=== PATIENT | female | born 1955 | race Two or more races ===

== ENCOUNTER 2017-04-05 10:00 | Inpatient (IN) | payer MEDICAID ==
[~2017-04-05] VITALS: Ht 152.4 cm; Wt 70.0 kg
[~2017-04-05 10:00] MED LIST: ACET325C PO; ATOR20TA66 PO; FERR-116 PO; LEVO75TA7 PO; LITH300T3 PO; MULT-1096 PO; POTA99TA25 PO; VITA-293 PO
[2017-04-05 10:34] LABS: BASOPHILS % (AUTO) 0.3 % (0-1); EOSINOPHILS # (AUTO) 0.2 X10'3 (0-0.9); EOSINOPHILS % (AUTO) 2.5 % (0-6); HEMATOCRIT 38.1 % (35.0-45.0); HEMOGLOBIN 13.3 g/dl (12.0-16.0); LYMPHOCYTES # (AUTO) 2.7 X10'3 (1.1-4.8); MEAN CORPUSCULAR HEMOGLOBIN 31.6 PG (27.0-31.0); MEAN CORPUSCULAR HGB CONC 34.8 % (33.0-36.5); MEAN CORPUSCULAR VOLUME 90.7 FL (78-98); MEAN PLATELET VOLUME 6.2 FL (7.4-10.4); MONOCYTES # (AUTO) 0.5 X10'3 (0-0.9); MONOCYTES % (AUTO) 6.3 % (2-12); NEUTROPHILS # (AUTO) 5.1 X10'3 (1.8-7.7); NEUTROPHILS % (AUTO) 58.9 % (42-75); PLATELET COUNT 460 X10'3 (140-440); WHITE BLOOD COUNT 8.6 X10'3 (4.5-11.0)
[2017-04-05 10:44] LABS: PARTIAL THROMBOPLASTIN TIME 24 SECONDS (22-32)
[2017-04-05 10:51] LABS: ALANINE AMINOTRANSFERASE 47 U/L (12-78); ALBUMIN 4.3 G/DL (3.4-5.0); ALBUMIN/GLOBULIN RATIO 1.3 (1.1-1.5); ALKALINE PHOSPHATASE 70 IU/L (46-116); ANION GAP 10 (8-16); ASPARTATE AMINO TRANSFERASE 21 U/L (10-37); BILIRUBIN,TOTAL 0.3 MG/DL (0.1-1.0); BLOOD UREA NITROGEN 8 MG/DL (7-18); BUN/CREATININE RATIO 8.9 (6.6-38.0); CHLORIDE 105 MMOL/L (99-107); GLUCOSE 108 MG/DL (70-104); POTASSIUM 3.1 MMOL/L (3.5-5.1); SODIUM 139 MMOL/L (135-145); TOTAL CARBON DIOXIDE 24.3 MMOL/L (24-32); TOTAL PROTEIN 7.7 G/DL (6.4-8.2); eGFR 64 ML/MIN
[2017-04-05] MEDS ORDERED: potassium Cl 20 mEq SR tablet PO ONE (11:10)
[2017-04-05] MEDS ORDERED: magnesium 2GM in 50ml NS 50 ML IV PRN (12:05)
[2017-04-05] MEDS ORDERED: metoprolol tartrate 1mg/ml inj IV PRN (12:05)
[2017-04-05] MEDS ORDERED: magnesium hydroxide 30ml (MOM) UD suspension PO PRN (12:05)
[2017-04-05] MEDS ORDERED: LORazepam 2 mg/ml vial IV PRN (12:05)
[2017-04-05] MEDS ORDERED: morphine 2 MG/ML inj. syringe IV PRN ×2 (12:05)
[2017-04-05] MEDS ORDERED: potassium Cl 40MEQ/NS 500ml 500 ML IV PRN ×2 (12:05)
[2017-04-05] MEDS ORDERED: potassium Cl 20 mEq SR tablet PO PRN ×2 (12:05)
[2017-04-05] MEDS ORDERED: aminophylline 250mg/10ml inj. IV PRN (12:05)
[2017-04-05] MEDS ORDERED: mag hydrox/Alum hydrox/simeth 30ml oral suspension PO PRN (12:05)
[2017-04-05] MEDS ORDERED: ondansetron/PF 4mg/2ml inj IV PRN (12:05)
[2017-04-05] MEDS ORDERED: acetaminophen 325mg tablet PO PRN (12:05)
[2017-04-05] MEDS ORDERED: regadenoson 0.4mg/5ml syringe IV ONE (12:05)
[2017-04-05] MEDS ORDERED: nitroGLYCERIN 0.4mg SUBLingual tab SL PRN ×2 (12:05)
[2017-04-05] MEDS ORDERED: magnesium 4gm in 100ml NS 100 ML IV PRN (12:05)
[2017-04-05] MEDS ORDERED: magnesium Cl slow-release 64mg tablet PO PRN (12:05)
[2017-04-05] MEDS ORDERED: DIPH-522 PO (12:16)
[2017-04-05] MEDS: normal saline 1000ml 1,000 ML IV SCH (12:33)
[2017-04-05 14:44] VITALS: BP 142/75
[2017-04-05 19:00] VITALS: BP 140/85
[2017-04-05] MEDS: acetaminophen 325mg tablet PO PRN (19:10)
[2017-04-05] MEDS: lithium carbonate 150mg capsule PO SCH (23:02)
[2017-04-06] VITALS (10 sets, daily range): BP systolic 124–145; BP diastolic 69–79
[2017-04-06] MEDS: normal saline 1000ml 1,000 ML IV SCH (01:51)
[2017-04-06 05:41] LABS: HEMATOCRIT 32.9 % (35.0-45.0); HEMOGLOBIN 11.3 g/dl (12.0-16.0); MEAN CORPUSCULAR HEMOGLOBIN 31.2 PG (27.0-31.0); MEAN CORPUSCULAR HGB CONC 34.3 % (33.0-36.5); MEAN CORPUSCULAR VOLUME 91.1 FL (78-98); MEAN PLATELET VOLUME 6.3 FL (7.4-10.4); PLATELET COUNT 360 X10'3 (140-440); RED BLOOD COUNT 3.61 X10'6 (4.20-5.60); WHITE BLOOD COUNT 5.9 X10'3 (4.5-11.0)
[2017-04-06 06:19] LABS: ALBUMIN 3.5 G/DL (3.4-5.0); ANION GAP 6 (8-16); BLOOD UREA NITROGEN 8 MG/DL (7-18); BUN/CREATININE RATIO 11.4 (6.6-38.0); CALCIUM 9.3 MG/DL (8.5-10.1); CHLORIDE 112 MMOL/L (99-107); CHOL/HDL RATIO 7.7 (0.00-4.99); CHOLESTEROL 231 MG/DL (0-200); GLUCOSE 99 MG/DL (70-104); HDL CHOLESTEROL 30 MG/DL (35-60); LDL CHOLESTEROL 140 MG/DL (50-100); SODIUM 144 MMOL/L (135-145); TOTAL CARBON DIOXIDE 26.3 MMOL/L (24-32); TRIGLYCERIDES 285 MG/DL (20-135); eGFR 86 ML/MIN
[2017-04-06] MEDS ORDERED: levoTHYROXINE 75mcg tablet PO SCH (08:00)
[2017-04-06] MEDS ORDERED: K and/or MAG REPLACEMENT MC SCH (08:00)
[2017-04-06] MEDS ORDERED: enoxaparin 40mg/0.4ml syringe SQ SCH (08:00)
[2017-04-06] MEDS ORDERED: aminophylline inj. 0 ML IV ONE (09:51)
[2017-04-06] MEDS ORDERED: regadenoson 0.4mg/5ml syringe IV ONE (09:52)
[2017-04-06] MEDS: lithium carbonate 150mg capsule PO SCH (12:00)
[2017-04-06] MEDS: acetaminophen 325mg tablet PO PRN (12:01)
[2017-04-06] MEDS ORDERED: LEVO500T2 PO (13:47)
[2017-04-06] MEDS ORDERED: ATOR40TA PO (13:57)
[2017-04-07] MEDS ORDERED: atorvastatin 20mg tablet PO SCH (08:00)
== END 2017-04-06 16:00 | disposition home or self-care (01) | DRG 243 ==
LOC: ER 10:01 → ED HOLD 12:01 → MED 3N 14:41
PROVIDERS: ADMIT Family Medicine; ATTEND Family Medicine
PROC: C2261ZZ Tomographic (Tomo) Nuclear Medicine Imaging of Right and Left Heart using Technetium 99m (Tc-99m) (ICD-10-PCS; principal; 2017-04-06)
DX: K21.9 Gastro-esophageal reflux disease without esophagitis (principal); I10 Essential (primary) hypertension; E03.9 Hypothyroidism, unspecified; E78.5 Hyperlipidemia, unspecified; E87.6 Hypokalemia; F31.9 Bipolar disorder, unspecified; G40.909 Epilepsy, unspecified, not intractable, without status epilepticus; J40 Bronchitis, not specified as acute or chronic; G89.29 Other chronic pain; Z60.2 Problems related to living alone; Z87.891 Personal history of nicotine dependence; Z88.6 Allergy status to analgesic agent; Z88.5 Allergy status to narcotic agent; Z88.2 Allergy status to sulfonamides; Z87.11 Personal history of peptic ulcer disease; Z85.3 Personal history of malignant neoplasm of breast; Z90.49 Acquired absence of other specified parts of digestive tract
CPT/HCPCS: 36415; 71045; 78452; 80048; 80053; 80061; 83036; 83735; 84484; 85025; 85027; 85610; 85730; 87070; 93005; 93017; 93306; 99285; A9500; J0280; J1650; J2060; J7030

== ENCOUNTER 2019-07-24 12:21 | Emergency (ER) | payer MEDICAID ==
[~2019-07-24] VITALS: Ht 170.2 cm; Wt 63.0 kg
[~2019-07-24 12:21] MED LIST changes: -ACET325C PO; +ACET325C3 PO; -ATOR20TA66 PO; -FERR-116 PO; -MULT-1096 PO; -POTA99TA25 PO; -VITA-293 PO
--- NOTE | 2019-07-24 12:36 | NUR ---
BIB EMS WITH C/O HOMELESS AND NEEDING SNF. DENIES SI OR HI. HX PSYCH PROBLEMS AND PREVIOUSLY WAS LIVING IN A GROUP HOME PSYCH FACILITY. PATIENT IS LOOKING FOR SNF, HOUSING, RESOURCES AT THIS TIME.
[2019-07-24 17:07] VITALS: BP 137/81
== END 2019-07-24 17:09 | disposition home or self-care (01) ==
LOC: ER 12:22
DX: Z00.8 Encounter for other general examination (principal); E78.00 Pure hypercholesterolemia, unspecified; I10 Essential (primary) hypertension; K21.9 Gastro-esophageal reflux disease without esophagitis; G89.29 Other chronic pain; Z87.891 Personal history of nicotine dependence; Z59.0 Homelessness; Z56.0 Unemployment, unspecified; Z87.11 Personal history of peptic ulcer disease; Z90.49 Acquired absence of other specified parts of digestive tract; Z85.3 Personal history of malignant neoplasm of breast; Z88.2 Allergy status to sulfonamides; Z88.1 Allergy status to other antibiotic agents; Z88.8 Allergy status to other drugs, medicaments and biological substances; Z88.5 Allergy status to narcotic agent; Z79.899 Other long term (current) drug therapy
CPT/HCPCS: 99283

== ENCOUNTER 2019-08-02 12:28 | Inpatient (IN) | payer MEDICAID ==
[~2019-08-02] VITALS: Ht 165.1 cm; Wt 62.0 kg
[2019-08-02 13:20] LABS: BASOPHILS % (AUTO) 0.6 % (0-1); EOSINOPHILS # (AUTO) 0.2 X10'3 (0-0.9); EOSINOPHILS % (AUTO) 2.8 % (0-6); HEMATOCRIT 34.4 % (35.0-45.0); HEMOGLOBIN 11.5 g/dl (12.0-16.0); LYMPHOCYTES # (AUTO) 1.1 X10'3 (1.1-4.8); LYMPHOCYTES % (AUTO) 17.9 % (21-51); MEAN CORPUSCULAR HEMOGLOBIN 30.4 PG (27.0-31.0); MEAN CORPUSCULAR HGB CONC 33.5 g/dL (33.0-36.5); MEAN CORPUSCULAR VOLUME 90.6 FL (78-98); MEAN PLATELET VOLUME 6.7 FL (7.4-10.4); MONOCYTES # (AUTO) 0.3 X10'3 (0-0.9); MONOCYTES % (AUTO) 5.5 % (2-12); NEUTROPHILS # (AUTO) 4.4 X10'3 (1.8-7.7); NEUTROPHILS % (AUTO) 73.2 % (42-75); PLATELET COUNT 350 X10'3 (140-440); RED CELL DISTRIBUTION WIDTH 13.6 % (11.5-14.5)
[2019-08-02 13:28] LABS: ALANINE AMINOTRANSFERASE 48 U/L (12-78); ALBUMIN 4.1 G/DL (3.4-5.0); ALBUMIN/GLOBULIN RATIO 1.3 (1.1-1.5); ALKALINE PHOSPHATASE 63 IU/L (46-116); ANION GAP 9 (8-16); ASPARTATE AMINO TRANSFERASE 20 U/L (10-37); BILIRUBIN,TOTAL 0.3 MG/DL (0.1-1.0); BLOOD UREA NITROGEN 13 MG/DL (7-18); CHLORIDE 105 MMOL/L (99-107); CREATININE 1.18 MG/DL (0.40-0.90); GLUCOSE 111 MG/DL (70-104); POTASSIUM 3.7 MMOL/L (3.5-5.1); SODIUM 138 MMOL/L (135-145); TOTAL CARBON DIOXIDE 24.1 MMOL/L (24-32); TOTAL PROTEIN 7.2 G/DL (6.4-8.2); eGFR 47 ML/MIN
[2019-08-02] MEDS ORDERED: CefTRIAXone 2gm/D5W 50ml 50 ML IV ONE (14:25)
[2019-08-02] MEDS ORDERED: normal saline 1000ML IV soln IV ONE (14:25)
[2019-08-02 14:51] LABS: CLARITY,URINE SLIGHTLY CLOUDY (Clear); COLOR,URINE YELLOW (Yellow); GLUCOSE, URINE NEGATIVE (Neg); KETONES,URINE NEGATIVE (Neg); LEUKOCYTE ESTERASE ,URINE LARGE (Neg); NITRITES, URINE NEGATIVE (Neg); OCCULT BLOOD,URINE SMALL (Neg); PH,URINE 6.5 (4.8-8.0); PROTEIN,URINE NEGATIVE (Neg); UROBILINOGEN,URINE 0.2 E.U/dL (0.2-1.0)
[2019-08-02 14:52] LABS: UA COLLECTION TYPE OTHER
[2019-08-02 14:56] LABS: URINE AMPHETAMINE SCREEN NEGATIVE (Neg); URINE BARBITUATE SCREEN NEGATIVE (Neg); URINE BENZODIAZEPINES SCREEN NEGATIVE (Neg); URINE CANNABINOID SCREEN NEGATIVE (Neg); URINE COCAINE SCREEN NEGATIVE (Neg); URINE METHADONE SCREEN NEGATIVE (Neg); URINE OPIATE SCREEN NEGATIVE (Neg); URINE PHENCYCLIDINE SCREEN NEGATIVE (Neg)
[2019-08-02 15:05] LABS: BACTERIA,URINE 1+ /HPF (Neg); SQUAMOUS EPITHELIAL CELL,UR MANY /LPF (FEW)
[2019-08-02 15:06] LABS: TRANSITIONAL EPI CELLS,URINE FEW /HPF; WBC CLUMPS,URINE FEW /HPF (NEGATIVE)
--- NOTE | 2019-08-02 16:31 | NUR ---
Pt back to her baseline of A&O x4.
[2019-08-02] MEDS ORDERED: normal saline 1000ML IV soln IVB ONE ×2 (16:35→20:40)
--- NOTE | 2019-08-02 20:35 | NUR ---
Pt ambulated to the restroom without any assistance. Pt was steady on her feet. Pt denies any dizziness.
[2019-08-02] MEDS ORDERED: magnesium Cl slow-release 64mg tablet PO PRN (21:00)
[2019-08-02] MEDS ORDERED: potassium CL 10mEq/100ml bag 100 ML IV PRN ×2 (21:00)
[2019-08-02] MEDS ORDERED: magnesium 4gm in 100ml NS 100 ML IV PRN (21:00)
[2019-08-02] MEDS ORDERED: magnesium 2GM in 50ml NS 50 ML IV PRN (21:00)
[2019-08-02] MEDS ORDERED: acetaminophen 325mg tablet PO PRN (21:00)
[2019-08-02] MEDS ORDERED: ondansetron/PF 4mg/2ml inj IV PRN (21:00)
[2019-08-02] MEDS ORDERED: potassium Cl 20 mEq SR tablet PO PRN ×2 (21:00)
[2019-08-02] MEDS: normal saline 1000ml 1,000 ML IV SCH (22:01)
--- NOTE | 2019-08-02 23:00 | NUR ---
Patient in room ORTHO 4024. I have received report from YOGESH Hunt and had the opportunity to ask questions and assume patient care.
[2019-08-02 23:15] VITALS: BP 142/70
[2019-08-03] MEDS: normal saline 1000ml 1,000 ML IV SCH ×4 (01:40→21:40)
[2019-08-03 06:00] VITALS: BP 106/47
--- NOTE | 2019-08-03 06:26 | NUR ---
Problems reprioritized. Patient report given, questions answered & plan of care reviewed with YOGESH Kelsey.
--- NOTE | 2019-08-03 06:53 | NUR ---
Patient in room ORTHO 4024A. I have received report from YOGESH KURTZ and had the opportunity to ask questions and assume patient care.
[2019-08-03 07:18] LABS: BASOPHILS % (AUTO) 0.5 % (0-1); EOSINOPHILS # (AUTO) 0.1 X10'3 (0-0.9); EOSINOPHILS % (AUTO) 2.5 % (0-6); HEMATOCRIT 28.3 % (35.0-45.0); HEMOGLOBIN 9.4 g/dl (12.0-16.0); LYMPHOCYTES # (AUTO) 1.5 X10'3 (1.1-4.8); LYMPHOCYTES % (AUTO) 28.7 % (21-51); MEAN CORPUSCULAR HEMOGLOBIN 30.7 PG (27.0-31.0); MEAN CORPUSCULAR HGB CONC 33.2 g/dL (33.0-36.5); MEAN CORPUSCULAR VOLUME 92.4 FL (78-98); MEAN PLATELET VOLUME 6.7 FL (7.4-10.4); MONOCYTES # (AUTO) 0.5 X10'3 (0-0.9); MONOCYTES % (AUTO) 8.9 % (2-12); NEUTROPHILS # (AUTO) 3.1 X10'3 (1.8-7.7); NEUTROPHILS % (AUTO) 59.4 % (42-75); PLATELET COUNT 274 X10'3 (140-440); RED BLOOD COUNT 3.06 X10'6 (4.20-5.60); WHITE BLOOD COUNT 5.2 X10'3 (4.5-11.0)
[2019-08-03 07:41] LABS: ALBUMIN 2.9 G/DL (3.4-5.0); ANION GAP 9 (8-16); BLOOD UREA NITROGEN 6 MG/DL (7-18); BUN/CREATININE RATIO 7.4 (6.6-38.0); CALCIUM 8.3 MG/DL (8.5-10.1); CHLORIDE 117 MMOL/L (99-107); CREATININE 0.81 MG/DL (0.40-0.90); GLUCOSE 91 MG/DL (70-104); POTASSIUM 3.8 MMOL/L (3.5-5.1); SODIUM 149 MMOL/L (135-145); TOTAL CARBON DIOXIDE 23.5 MMOL/L (24-32); eGFR 72 ML/MIN
[2019-08-03] MEDS: K and/or MAG REPLACEMENT MC SCH ×2 (07:51→20:00)
[2019-08-03] MEDS: CefTRIAXone/D5W-Rocephin 1gm 50 ML IV SCH (08:08)
[2019-08-03 10:00] VITALS: BP 109/61
[2019-08-03] MEDS: dextrose 5%-water 1,000 ML IV SCH ×2 (11:41→20:41)
--- NOTE | 2019-08-03 12:17 | NUR ---
Initial: Pt admit w/ sepsis secondary to UTI and AMS; currently AOx3. Placed on regular diet w/ PO 100% first meal this AM. Na 149 started on D5 at 100ml/hr per MD; additional 408 kcals/day. If pt continues to meet needs w/ PO meals would benefit from change to heart healthy diet given HTN hx and Na 149 at this time. LBM 08/02. Will continue to monitor for additional protein needs given DX. Rec: 1. continue regular diet; consider heart healthy diet change if good PO persists if MD agreeable 2. monitor for additional protein needs 3. routine bowel care 4. wt per rx Addendum: 08/03/19 at [address] Amended: Links added.
[2019-08-03 18:00] VITALS: BP 117/59
--- NOTE | 2019-08-03 18:00 | NUR ---
Report Received by Laure ZUÑIGA
--- NOTE | 2019-08-03 18:16 | NUR ---
Problems reprioritized. Patient report given, questions answered & plan of care reviewed with YOGESH Irizarry.
[2019-08-03] MEDS ORDERED: FERR325T29 PO (18:42)
[2019-08-03] MEDS ORDERED: PROP10TA10 PO (18:42)
[2019-08-03] MEDS ORDERED: RISP1TAB13 PO ×2 (18:42)
[2019-08-03] MEDS ORDERED: PANT20TA3 PO (18:42)
[2019-08-03] MEDS ORDERED: LITH300C PO (18:42)
[2019-08-03] MEDS ORDERED: ALBU8.5H8 INH (18:42)
[2019-08-03] MEDS ORDERED: CYCL-1 PO (18:42)
[2019-08-03 22:00] VITALS: BP 125/64
[2019-08-04] MEDS: dextrose 5%-water 1,000 ML IV SCH ×2 (05:50→07:13)
[2019-08-04 06:00] VITALS: BP 119/67
--- NOTE | 2019-08-04 06:33 | NUR ---
Patient in room ORTHO 4024A. I have received report from YOGESH LR and had the opportunity to ask questions and assume patient care.
--- NOTE | 2019-08-04 07:02 | NUR ---
Patient in room ORTHO 4024. I have received report from Edie ZUÑIGA and had the opportunity to ask questions and assume patient care. Patient resting comfortably in bed. No needs at this time.
[2019-08-04] MEDS: CefTRIAXone/D5W-Rocephin 1gm 50 ML IV SCH (07:13)
[2019-08-04] MEDS: normal saline 1000ml 1,000 ML IV SCH ×2 (07:40→15:22)
[2019-08-04 07:50] LABS: ALBUMIN 3.2 G/DL (3.4-5.0); ANION GAP 6 (8-16); BLOOD UREA NITROGEN 4 MG/DL (7-18); BUN/CREATININE RATIO 5.4 (6.6-38.0); CALCIUM 8.9 MG/DL (8.5-10.1); CHLORIDE 112 MMOL/L (99-107); CREATININE 0.74 MG/DL (0.40-0.90); GLUCOSE 113 MG/DL (70-104); MAGNESIUM 1.9 MG/DL (1.5-2.4); POTASSIUM 3.5 MMOL/L (3.5-5.1); SODIUM 144 MMOL/L (135-145); TOTAL CARBON DIOXIDE 25.8 MMOL/L (24-32); eGFR 80 ML/MIN
[2019-08-04 07:57] LABS: BASOPHILS % (AUTO) 0.5 % (0-1); EOSINOPHILS # (AUTO) 0.2 X10'3 (0-0.9); EOSINOPHILS % (AUTO) 3.9 % (0-6); HEMATOCRIT 29.2 % (35.0-45.0); HEMOGLOBIN 9.8 g/dl (12.0-16.0); LYMPHOCYTES # (AUTO) 1.2 X10'3 (1.1-4.8); LYMPHOCYTES % (AUTO) 24.7 % (21-51); MEAN CORPUSCULAR HEMOGLOBIN 30.7 PG (27.0-31.0); MEAN CORPUSCULAR HGB CONC 33.4 g/dL (33.0-36.5); MEAN CORPUSCULAR VOLUME 91.9 FL (78-98); MEAN PLATELET VOLUME 6.6 FL (7.4-10.4); MONOCYTES # (AUTO) 0.3 X10'3 (0-0.9); NEUTROPHILS # (AUTO) 3.2 X10'3 (1.8-7.7); NEUTROPHILS % (AUTO) 63.9 % (42-75); PLATELET COUNT 286 X10'3 (140-440); RED BLOOD COUNT 3.18 X10'6 (4.20-5.60); RED CELL DISTRIBUTION WIDTH 14.1 % (11.5-14.5); WHITE BLOOD COUNT 4.9 X10'3 (4.5-11.0)
[2019-08-04] MEDS ORDERED: risperiDONE 2mg tablet PO SCH ×2 (08:00→21:00)
[2019-08-04] MEDS: K and/or MAG REPLACEMENT MC SCH ×2 (08:48→20:00)
[2019-08-04] MEDS: risperiDONE 0.5mg tablet PO SCH (10:43)
--- NOTE | 2019-08-04 17:52 | NUR ---
REVIEWED AND AGREE WITH CHARTING FROM YOGESH VELÁSQUEZ
--- NOTE | 2019-08-04 17:52 | NUR ---
Page Sent PAGER ID: [phone] MESSAGE: KAYKAY [phone]: THERESA WIN [id number]... PT HAS A HEADACHE, IS REQUESTING TYLENOL, CAN I GET AN ORDER?
[2019-08-04 18:00] VITALS: BP 141/76
--- NOTE | 2019-08-04 18:08 | NUR ---
Problems reprioritized. Patient report given, questions answered & plan of care reviewed with Edie ZUÑIGA. Patient stableat transfer.
[2019-08-04] MEDS: acetaminophen 325mg tablet PO PRN (18:56)
[2019-08-04] MEDS: propranolol 10mg tablet PO SCH (19:28)
[2019-08-04] MEDS ORDERED: lithium carbonate 150mg capsule PO SCH (21:00)
[2019-08-04 22:00] VITALS: BP 119/61
[2019-08-05] MEDS: normal saline 1000ml 1,000 ML IV SCH (03:40)
[2019-08-05 06:00] VITALS: BP 109/61
--- NOTE | 2019-08-05 06:10 | NUR ---
Patient in room ORTHO 4024. I have received report from BE ZUÑIGA and had the opportunity to ask questions and assume patient care.
[2019-08-05 07:14] LABS: BASOPHILS % (AUTO) 0.8 % (0-1); EOSINOPHILS # (AUTO) 0.2 X10'3 (0-0.9); EOSINOPHILS % (AUTO) 4.6 % (0-6); HEMATOCRIT 30.1 % (35.0-45.0); HEMOGLOBIN 10.1 g/dl (12.0-16.0); LYMPHOCYTES # (AUTO) 1.4 X10'3 (1.1-4.8); LYMPHOCYTES % (AUTO) 28.2 % (21-51); MEAN CORPUSCULAR HEMOGLOBIN 30.8 PG (27.0-31.0); MEAN CORPUSCULAR HGB CONC 33.5 g/dL (33.0-36.5); MEAN CORPUSCULAR VOLUME 91.9 FL (78-98); MEAN PLATELET VOLUME 6.3 FL (7.4-10.4); MONOCYTES # (AUTO) 0.4 X10'3 (0-0.9); MONOCYTES % (AUTO) 7.4 % (2-12); NEUTROPHILS # (AUTO) 2.9 X10'3 (1.8-7.7); PLATELET COUNT 301 X10'3 (140-440); RED BLOOD COUNT 3.27 X10'6 (4.20-5.60); RED CELL DISTRIBUTION WIDTH 13.6 % (11.5-14.5); WHITE BLOOD COUNT 4.9 X10'3 (4.5-11.0)
[2019-08-05 07:31] LABS: ALBUMIN 3.3 G/DL (3.4-5.0); ANION GAP 8 (8-16); BLOOD UREA NITROGEN 8 MG/DL (7-18); BUN/CREATININE RATIO 9.6 (6.6-38.0); CALCIUM 9.1 MG/DL (8.5-10.1); CHLORIDE 107 MMOL/L (99-107); CREATININE 0.83 MG/DL (0.40-0.90); GLUCOSE 96 MG/DL (70-104); POTASSIUM 3.5 MMOL/L (3.5-5.1); SODIUM 143 MMOL/L (135-145); TOTAL CARBON DIOXIDE 27.8 MMOL/L (24-32); eGFR 70 ML/MIN
[2019-08-05] MEDS: K and/or MAG REPLACEMENT MC SCH (08:00)
[2019-08-05] MEDS: risperiDONE 0.5mg tablet PO SCH (08:10)
[2019-08-05] MEDS: propranolol 10mg tablet PO SCH (08:10)
[2019-08-05] MEDS: acetaminophen 325mg tablet PO PRN (08:12)
[2019-08-05 10:00] VITALS: BP 107/62
--- NOTE | 2019-08-05 11:15 | NUR ---
PATIENT REPORTED DIZZINESS CM, CHECKED ON PATIENT SHE STATES SHE HAS BEEN FEELING DIZZY SINCE YESTERDAY. DID NOT REPORT DIZZINESS THIS AM WITH ASSESSMENT. VS STABLE. EDUCATED PATIENT TO SIT ON EDGE OF BED FOR A MINUTE BEFORE STANDING AND TO CALL FOR HELP WHEN GETTING UP. PATIENT VERBALIZED UNDERSTANDING.
[2019-08-05] MEDS ORDERED: AMOX-419 PO (16:05)
--- NOTE | 2019-08-05 16:25 | NUR ---
Pt alert & stable on discharge per MD orders. Discharge education provided and new medications reviewed with pt. Pt made aware that new prescription has been sent to [facility] on [address]. Pt provided with bus passes to go home to the [place]. Tele and PIV already d/c. All belongings accounted for and sent with pt. Pt has follow up appointment made for August 09.
== END 2019-08-05 16:10 | disposition home or self-care (01) | DRG 720 ==
LOC: ER 12:29 → ED HOLD 21:00 → ORTHO 4S 23:05
PROVIDERS: ADMIT Internal Medicine; ATTEND Internal Medicine
DX: A41.9 Sepsis, unspecified organism (principal); G93.40 Encephalopathy, unspecified; E87.0 Hyperosmolality and hypernatremia; I95.9 Hypotension, unspecified; D64.9 Anemia, unspecified; E03.9 Hypothyroidism, unspecified; E78.00 Pure hypercholesterolemia, unspecified; E78.5 Hyperlipidemia, unspecified; F31.9 Bipolar disorder, unspecified; G89.29 Other chronic pain; K21.9 Gastro-esophageal reflux disease without esophagitis; I10 Essential (primary) hypertension; Z59.0 Homelessness; Z79.899 Other long term (current) drug therapy; Z85.3 Personal history of malignant neoplasm of breast; Z85.41 Personal history of malignant neoplasm of cervix uteri; Z87.11 Personal history of peptic ulcer disease; Z88.8 Allergy status to other drugs, medicaments and biological substances; Z90.49 Acquired absence of other specified parts of digestive tract; Z88.2 Allergy status to sulfonamides
CPT/HCPCS: 36415; 70450; 71045; 80048; 80053; 80178; 80305; 81001; 83605; 83735; 84145; 84484; 85025; 87040; 87081; 93005; 97110; 97161; 97530; 99285; G0378; J0696; J7030; J7070

== ENCOUNTER 2020-10-08 12:05 | Emergency (ER) | payer MEDICAID ==
[~2020-10-08] VITALS: Ht 170.2 cm; Wt 59.1 kg
[~2020-10-08 12:05] MED LIST changes: +ALBU8.5H17 INH; +CYCL-1 PO; +FERR325T29 PO; -LEVO75TA7 PO; +LITH300C PO; -LITH300T3 PO; +PANT20TA18 PO; +PROP10TA10 PO; +RISP1TAB13 PO
[2020-10-08 12:16] VITALS: BP 109/69
[2020-10-08 14:06] LABS: BASOPHILS % (AUTO) 0.7 % (0-1); EOSINOPHILS # (AUTO) 0.1 X10'3 (0-0.9); HEMOGLOBIN 12.8 g/dl (12.0-16.0); LYMPHOCYTES # (AUTO) 2.1 X10'3 (1.1-4.8); LYMPHOCYTES % (AUTO) 35.6 % (21-51); MEAN CORPUSCULAR HEMOGLOBIN 30.9 PG (27.0-31.0); MEAN CORPUSCULAR HGB CONC 33.6 g/dL (33.0-36.5); MEAN CORPUSCULAR VOLUME 91.9 FL (78-98); MEAN PLATELET VOLUME 7.1 FL (7.4-10.4); MONOCYTES # (AUTO) 0.4 X10'3 (0-0.9); MONOCYTES % (AUTO) 7.2 % (2-12); NEUTROPHILS # (AUTO) 3.2 X10'3 (1.8-7.7); NEUTROPHILS % (AUTO) 54.5 % (42-75); PLATELET COUNT 288 X10'3 (140-440); RED BLOOD COUNT 4.13 X10'6 (4.20-5.60); RED CELL DISTRIBUTION WIDTH 12.8 % (11.5-14.5); WHITE BLOOD COUNT 5.9 X10'3 (4.5-11.0)
[2020-10-08 14:22] LABS: ALANINE AMINOTRANSFERASE 31 U/L (12-78); ALBUMIN 4.2 G/DL (3.4-5.0); ALBUMIN/GLOBULIN RATIO 1.4 (1.1-1.5); ALKALINE PHOSPHATASE 92 IU/L (46-116); ANION GAP 10 (8-16); ASPARTATE AMINO TRANSFERASE 20 U/L (10-37); BILIRUBIN,TOTAL 0.3 MG/DL (0.1-1.0); BLOOD UREA NITROGEN 13 MG/DL (7-18); BUN/CREATININE RATIO 17.6 (6.6-38.0); CHLORIDE 105 MMOL/L (99-107); CREATININE 0.74 MG/DL (0.40-0.90); GLUCOSE 101 MG/DL (70-104); POTASSIUM 4.5 MMOL/L (3.5-5.1); SODIUM 142 MMOL/L (135-145); TOTAL CARBON DIOXIDE 26.7 MMOL/L (24-32); TOTAL PROTEIN 7.3 G/DL (6.4-8.2); eGFR 80 ML/MIN
== END 2020-10-08 18:07 | disposition home or self-care (01) ==
LOC: ER 12:07
DX: N64.4 Mastodynia (principal); R07.89 Other chest pain; R22.2 Localized swelling, mass and lump, trunk; I10 Essential (primary) hypertension; E78.00 Pure hypercholesterolemia, unspecified; K21.9 Gastro-esophageal reflux disease without esophagitis; Z90.49 Acquired absence of other specified parts of digestive tract; Z59.0 Homelessness; Z56.0 Unemployment, unspecified; Z88.2 Allergy status to sulfonamides; Z88.4 Allergy status to anesthetic agent; Z88.1 Allergy status to other antibiotic agents; Z88.8 Allergy status to other drugs, medicaments and biological substances; Z79.899 Other long term (current) drug therapy
CPT/HCPCS: 36415; 71045; 80053; 83880; 84484; 85025; 93005; 99285

== ENCOUNTER 2020-10-18 11:30 | Emergency (ER) | payer MEDICAID ==
[~2020-10-18] VITALS: Ht 165.1 cm; Wt 59.0 kg
[2020-10-18 12:00] VITALS: BP 118/74
[2020-10-18 12:22] LABS: CLARITY,URINE CLEAR (Clear); COLOR,URINE YELLOW (Yellow); GLUCOSE, URINE NEGATIVE (Neg); KETONES,URINE NEGATIVE (Neg); LEUKOCYTE ESTERASE ,URINE NEGATIVE (Neg); NITRITES, URINE NEGATIVE (Neg); OCCULT BLOOD,URINE NEGATIVE (Neg); PH,URINE 5.5 (4.8-8.0); PROTEIN,URINE NEGATIVE (Neg); UA COLLECTION TYPE CLN CATCH MIDSTREAM; UROBILINOGEN,URINE 0.2 E.U/dL (0.2-1.0)
[2020-10-18] MEDS ORDERED: FLUC150T66 PO (12:33)
== END 2020-10-18 12:51 | disposition home or self-care (01) ==
LOC: ER 11:31
DX: B37.3 Candidiasis of vulva and vagina (principal); R10.30 Lower abdominal pain, unspecified; M54.5 Low back pain; R30.0 Dysuria; E78.00 Pure hypercholesterolemia, unspecified; I10 Essential (primary) hypertension; K21.9 Gastro-esophageal reflux disease without esophagitis; G89.29 Other chronic pain; F31.9 Bipolar disorder, unspecified; Z86.69 Personal history of other diseases of the nervous system and sense organs; Z87.11 Personal history of peptic ulcer disease; Z87.440 Personal history of urinary (tract) infections; Z85.3 Personal history of malignant neoplasm of breast; Z85.41 Personal history of malignant neoplasm of cervix uteri; Z90.89 Acquired absence of other organs; Z90.49 Acquired absence of other specified parts of digestive tract; Z60.2 Problems related to living alone; Z56.0 Unemployment, unspecified; Z59.0 Homelessness; Z88.2 Allergy status to sulfonamides; Z88.1 Allergy status to other antibiotic agents; Z88.8 Allergy status to other drugs, medicaments and biological substances; Z88.6 Allergy status to analgesic agent; Z79.2 Long term (current) use of antibiotics; Z79.899 Other long term (current) drug therapy
CPT/HCPCS: 81003; 99283

== ENCOUNTER → 2020-10-19 | Emergency (ER) | payer MEDICAID ==
[~2020-10-19] VITALS: Ht 165.1 cm; Wt 59.1 kg
[~2020-10-19] MED LIST changes: +FLUC150T66 PO
[2020-10-20 00:37] VITALS: BP 137/81
== END | disposition home or self-care (01) ==
LOC: ER 23:26
DX: Z02.89 Encounter for other administrative examinations (principal); R11.2 Nausea with vomiting, unspecified; R19.00 Intra-abdominal and pelvic swelling, mass and lump, unspecified site; E78.00 Pure hypercholesterolemia, unspecified; I10 Essential (primary) hypertension; K21.9 Gastro-esophageal reflux disease without esophagitis; G89.29 Other chronic pain; F31.9 Bipolar disorder, unspecified; Z86.69 Personal history of other diseases of the nervous system and sense organs; Z87.11 Personal history of peptic ulcer disease; Z85.3 Personal history of malignant neoplasm of breast; Z85.41 Personal history of malignant neoplasm of cervix uteri; Z90.89 Acquired absence of other organs; Z90.49 Acquired absence of other specified parts of digestive tract; Z98.890 Other specified postprocedural states; Z60.2 Problems related to living alone; Z56.0 Unemployment, unspecified; Z59.0 Homelessness; Z88.2 Allergy status to sulfonamides; Z88.1 Allergy status to other antibiotic agents; Z88.8 Allergy status to other drugs, medicaments and biological substances; Z79.899 Other long term (current) drug therapy
CPT/HCPCS: 99284

== ENCOUNTER 2020-12-14 09:06 | Emergency (ER) | payer MEDICAID ==
[~2020-12-14] VITALS: Ht 162.6 cm; Wt 59.1 kg
[~2020-12-14 09:06] MED LIST changes: -FLUC150T66 PO
[2020-12-14 09:21] VITALS: BP 134/56
[2020-12-14] MEDS ORDERED: ALBU8HFA PO (09:43)
[2020-12-14] MEDS ORDERED: BENZ-16 PO (09:43)
== END 2020-12-14 10:14 | disposition home or self-care (01) ==
LOC: ER 09:07
DX: R06.02 Shortness of breath (principal); Z20.822 Contact with and (suspected) exposure to COVID-19; R53.83 Other fatigue; R05.9 Cough, unspecified; E78.00 Pure hypercholesterolemia, unspecified; I10 Essential (primary) hypertension; K21.9 Gastro-esophageal reflux disease without esophagitis; G89.29 Other chronic pain; F31.9 Bipolar disorder, unspecified; Z87.440 Personal history of urinary (tract) infections; Z87.11 Personal history of peptic ulcer disease; Z86.69 Personal history of other diseases of the nervous system and sense organs; Z85.3 Personal history of malignant neoplasm of breast; Z90.89 Acquired absence of other organs; Z90.49 Acquired absence of other specified parts of digestive tract; Z98.890 Other specified postprocedural states; Z60.2 Problems related to living alone; Z56.0 Unemployment, unspecified; Z59.00 Homelessness unspecified; Z88.2 Allergy status to sulfonamides; Z88.1 Allergy status to other antibiotic agents; Z88.8 Allergy status to other drugs, medicaments and biological substances; Z79.899 Other long term (current) drug therapy
CPT/HCPCS: 36415; 99283; U0003; U0005

== ENCOUNTER 2021-02-06 11:00 | Emergency (ER) | payer MEDICAID ==
[~2021-02-06] VITALS: Ht 165.1 cm; Wt 61.4 kg
[2021-02-06 11:19] VITALS: BP 143/77
[2021-02-06 11:48] LABS: CLARITY,URINE CLEAR (Clear); COLOR,URINE YELLOW (Yellow); GLUCOSE, URINE NEGATIVE (Neg); KETONES,URINE NEGATIVE (Neg); LEUKOCYTE ESTERASE ,URINE NEGATIVE (Neg); NITRITES, URINE NEGATIVE (Neg); OCCULT BLOOD,URINE SMALL (Neg); PH,URINE 5.5 (4.8-8.0); PROTEIN,URINE NEGATIVE (Neg); UROBILINOGEN,URINE 0.2 E.U/dL (0.2-1.0)
[2021-02-06 11:50] LABS: BASOPHILS % (AUTO) 0.5 % (0-1); EOSINOPHILS # (AUTO) 0.1 X10'3 (0-0.9); EOSINOPHILS % (AUTO) 1.7 % (0-6); HEMATOCRIT 37.1 % (35.0-45.0); HEMOGLOBIN 12.7 g/dl (12.0-16.0); LYMPHOCYTES # (AUTO) 1.2 X10'3 (1.1-4.8); LYMPHOCYTES % (AUTO) 30.2 % (21-51); MEAN CORPUSCULAR HEMOGLOBIN 30.8 PG (27.0-31.0); MEAN CORPUSCULAR HGB CONC 34.2 g/dL (33.0-36.5); MEAN CORPUSCULAR VOLUME 90.1 FL (78-98); MEAN PLATELET VOLUME 6.7 FL (7.4-10.4); MONOCYTES # (AUTO) 0.4 X10'3 (0-0.9); MONOCYTES % (AUTO) 9.1 % (2-12); NEUTROPHILS # (AUTO) 2.4 X10'3 (1.8-7.7); NEUTROPHILS % (AUTO) 58.5 % (42-75); PLATELET COUNT 266 X10'3 (140-440); RED BLOOD COUNT 4.12 X10'6 (4.20-5.60); RED CELL DISTRIBUTION WIDTH 12.6 % (11.5-14.5); WHITE BLOOD COUNT 4.1 X10'3 (4.5-11.0)
[2021-02-06 12:01] LABS: UA COLLECTION TYPE CLN CATCH MIDSTREAM
[2021-02-06 12:02] LABS: BACTERIA,URINE NONE SEEN /HPF (Neg); RBC,URINE 0-2 /HPF (0-2); SQUAMOUS EPITHELIAL CELL,UR FEW /LPF (FEW); WBC,URINE 0-4 /HPF (0-4)
[2021-02-06 12:11] LABS: ALANINE AMINOTRANSFERASE 34 U/L (12-78); ALBUMIN 3.9 G/DL (3.4-5.0); ALBUMIN/GLOBULIN RATIO 1.1 (1.1-1.5); ALKALINE PHOSPHATASE 81 IU/L (46-116); ASPARTATE AMINO TRANSFERASE 28 U/L (10-37); BILIRUBIN,TOTAL 0.2 MG/DL (0.1-1.0); BLOOD UREA NITROGEN 10 MG/DL (7-18); BUN/CREATININE RATIO 11.5 (6.6-38.0); CALCIUM 9.4 MG/DL (8.5-10.1); CREATININE 0.87 MG/DL (0.40-0.90); GLUCOSE 120 MG/DL (70-104); TOTAL CARBON DIOXIDE 30.1 MMOL/L (24-32); TOTAL PROTEIN 7.4 G/DL (6.4-8.2); eGFR 66 ML/MIN
[2021-02-06 12:39] LABS: CHLORIDE 103 MMOL/L (99-107); POTASSIUM 3.9 MMOL/L (3.5-5.1)
[2021-02-06 12:41] LABS: ANION GAP 9 (8-16); SODIUM 142 MMOL/L (135-145)
== END 2021-02-06 14:03 | disposition home or self-care (01) ==
LOC: ER 11:01
DX: R10.84 Generalized abdominal pain (principal); R30.0 Dysuria; R55 Syncope and collapse; E78.00 Pure hypercholesterolemia, unspecified; I10 Essential (primary) hypertension; K21.9 Gastro-esophageal reflux disease without esophagitis; G89.29 Other chronic pain; F31.9 Bipolar disorder, unspecified; Z87.440 Personal history of urinary (tract) infections; Z87.11 Personal history of peptic ulcer disease; Z85.3 Personal history of malignant neoplasm of breast; Z85.41 Personal history of malignant neoplasm of cervix uteri; Z90.89 Acquired absence of other organs; Z90.49 Acquired absence of other specified parts of digestive tract; Z98.890 Other specified postprocedural states; Z60.2 Problems related to living alone; Z56.0 Unemployment, unspecified; Z59.00 Homelessness unspecified; Z88.2 Allergy status to sulfonamides; Z88.8 Allergy status to other drugs, medicaments and biological substances; Z88.1 Allergy status to other antibiotic agents; Z79.899 Other long term (current) drug therapy
CPT/HCPCS: 36415; 80053; 81001; 85025; 99283

== ENCOUNTER 2021-08-02 19:19 | Emergency (ER) | payer MEDICAID ==
[~2021-08-02] VITALS: Ht 162.6 cm; Wt 59.1 kg
[2021-08-02 21:59] VITALS: BP 142/73
[2021-08-02 23:32] LABS: CLARITY,URINE CLEAR (Clear); GLUCOSE, URINE NEGATIVE (Neg); KETONES,URINE NEGATIVE (Neg); LEUKOCYTE ESTERASE ,URINE NEGATIVE (Neg); NITRITES, URINE NEGATIVE (Neg); OCCULT BLOOD,URINE TRACE-INTACT (Neg); PROTEIN,URINE NEGATIVE (Neg); UROBILINOGEN,URINE 0.2 E.U/dL (0.2-1.0)
[2021-08-02 23:40] LABS: COLOR,URINE Straw (Yellow); UA COLLECTION TYPE CLN CATCH MIDSTREAM
[2021-08-02 23:42] LABS: WBC,URINE 0-4 /HPF (0-4)
[2021-08-02 23:43] LABS: BACTERIA,URINE FEW /HPF (Neg); SQUAMOUS EPITHELIAL CELL,UR NONE SEEN /LPF (FEW)
[2021-08-02 23:51] LABS: BASOPHILS % (AUTO) 0.9 % (0-1); EOSINOPHILS # (AUTO) 0.1 X10'3 (0-0.9); EOSINOPHILS % (AUTO) 2.2 % (0-6); HEMATOCRIT 35.5 % (35.0-45.0); HEMOGLOBIN 12.1 g/dl (12.0-16.0); LYMPHOCYTES # (AUTO) 2.1 X10'3 (1.1-4.8); LYMPHOCYTES % (AUTO) 41.9 % (21-51); MEAN CORPUSCULAR HEMOGLOBIN 30.3 PG (27.0-31.0); MEAN CORPUSCULAR HGB CONC 34.1 g/dL (33.0-36.5); MEAN CORPUSCULAR VOLUME 89.1 FL (78-98); MEAN PLATELET VOLUME 6.8 FL (7.4-10.4); MONOCYTES # (AUTO) 0.3 X10'3 (0-0.9); MONOCYTES % (AUTO) 6.2 % (2-12); NEUTROPHILS # (AUTO) 2.4 X10'3 (1.8-7.7); NEUTROPHILS % (AUTO) 48.8 % (42-75); PLATELET COUNT 265 X10'3 (140-440); RED BLOOD COUNT 3.98 X10'6 (4.20-5.60); RED CELL DISTRIBUTION WIDTH 12.6 % (11.5-14.5)
[2021-08-02 23:57] LABS: ALANINE AMINOTRANSFERASE 23 U/L (12-78); ALBUMIN 3.9 G/DL (3.4-5.0); ALBUMIN/GLOBULIN RATIO 1.3 (1.1-1.5); ALKALINE PHOSPHATASE 80 IU/L (46-116); ANION GAP 8 (8-16); ASPARTATE AMINO TRANSFERASE 19 U/L (10-37); BILIRUBIN,TOTAL 0.3 MG/DL (0.1-1.0); BLOOD UREA NITROGEN 12 MG/DL (7-18); BUN/CREATININE RATIO 17.9 (6.6-38.0); CALCIUM 9.5 MG/DL (8.5-10.1); CHLORIDE 104 MMOL/L (99-107); CREATININE 0.67 MG/DL (0.40-0.90); GLUCOSE 97 MG/DL (70-104); POTASSIUM 3.9 MMOL/L (3.5-5.1); SODIUM 139 MMOL/L (135-145); TOTAL CARBON DIOXIDE 26.9 MMOL/L (24-32); TOTAL PROTEIN 6.8 G/DL (6.4-8.2); eGFR 89 ML/MIN
[2021-08-02 23:59] LABS: MAGNESIUM 2.2 MG/DL (1.5-2.4)
== END 2021-08-03 00:35 | disposition home or self-care (01) ==
LOC: ER 19:20
DX: R10.9 Unspecified abdominal pain (principal); R07.9 Chest pain, unspecified; R42 Dizziness and giddiness; I11.9 Hypertensive heart disease without heart failure; K21.9 Gastro-esophageal reflux disease without esophagitis; G89.29 Other chronic pain; F31.9 Bipolar disorder, unspecified; E78.00 Pure hypercholesterolemia, unspecified; Z85.9 Personal history of malignant neoplasm, unspecified; Z88.2 Allergy status to sulfonamides; Z88.8 Allergy status to other drugs, medicaments and biological substances; Z88.1 Allergy status to other antibiotic agents; Z88.6 Allergy status to analgesic agent; Z88.5 Allergy status to narcotic agent
CPT/HCPCS: 36415; 74176; 80053; 81001; 83735; 84145; 84484; 85025; 93005; 99285

== ENCOUNTER 2022-08-20 17:15 | Emergency (ER) | payer MEDICAID ==
[~2022-08-20] VITALS: Ht 167.6 cm; Wt 62.3 kg
[2022-08-20 18:29] LABS: BASOPHILS % (AUTO) 0.7 % (0-1); EOSINOPHILS # (AUTO) 0.1 X10'3 (0-0.9); EOSINOPHILS % (AUTO) 1.9 % (0-6); HEMATOCRIT 36.5 % (35.0-45.0); HEMOGLOBIN 12.1 g/dl (12.0-16.0); LYMPHOCYTES % (AUTO) 38.7 % (21-51); MEAN CORPUSCULAR HEMOGLOBIN 30.4 PG (27.0-31.0); MEAN CORPUSCULAR HGB CONC 33.1 g/dL (33.0-36.5); MEAN CORPUSCULAR VOLUME 91.7 FL (78-98); MONOCYTES # (AUTO) 0.3 X10'3 (0-0.9); MONOCYTES % (AUTO) 6.2 % (2-12); NEUTROPHILS # (AUTO) 2.8 X10'3 (1.8-7.7); NEUTROPHILS % (AUTO) 52.5 % (42-75); PLATELET COUNT 277 X10'3 (140-440); RED BLOOD COUNT 3.98 X10'6 (4.20-5.60); WHITE BLOOD COUNT 5.3 X10'3 (4.5-11.0)
[2022-08-20 18:30] LABS: URINE HCG NEGATIVE (NEG)
[2022-08-20 18:44] LABS: ALANINE AMINOTRANSFERASE 30 U/L (12-78); ALBUMIN 4.1 G/DL (3.4-5.0); ALBUMIN/GLOBULIN RATIO 1.4 (1.1-1.5); ALKALINE PHOSPHATASE 85 IU/L (46-116); ANION GAP 7 (8-16); ASPARTATE AMINO TRANSFERASE 22 U/L (10-37); BILIRUBIN,TOTAL 0.2 MG/DL (0.1-1.0); BLOOD UREA NITROGEN 11 MG/DL (7-18); BUN/CREATININE RATIO 16.2 (10.0-20.0); CALCIUM 9.4 MG/DL (8.5-10.1); CHLORIDE 100 MMOL/L (99-107); CREATININE 0.68 MG/DL (0.40-0.90); GLUCOSE 104 MG/DL (70-104); LIPASE 166 U/L (73-393); POTASSIUM 3.8 MMOL/L (3.5-5.1); SODIUM 137 MMOL/L (135-145); TOTAL CARBON DIOXIDE 30.1 MMOL/L (24-32); TOTAL PROTEIN 7.1 G/DL (6.4-8.2); eGFR 87 ML/MIN
[2022-08-20 18:48] LABS: CLARITY,URINE CLEAR (Clear); COLOR,URINE YELLOW (Yellow); GLUCOSE, URINE NEGATIVE (Neg); KETONES,URINE NEGATIVE (Neg); LEUKOCYTE ESTERASE ,URINE NEGATIVE (Neg); NITRITES, URINE NEGATIVE (Neg); OCCULT BLOOD,URINE NEGATIVE (Neg); PH,URINE 6.5 (4.8-8.0); PROTEIN,URINE NEGATIVE (Neg); UROBILINOGEN,URINE 0.2 E.U/dL (0.2-1.0)
[2022-08-20 18:58] LABS: UA COLLECTION TYPE CLN CATCH MIDSTREAM
--- NOTE | 2022-08-21 00:18 | NUR ---
RFER TO PROVIDERS MSE.
[2022-08-21] MEDS ORDERED: POLY119P2 PO (04:14)
[2022-08-21 04:19] VITALS: BP 128/65
== END 2022-08-21 04:24 | disposition home or self-care (01) ==
LOC: ER 17:15
DX: K59.00 Constipation, unspecified (principal)
CPT/HCPCS: 36415; 74176; 80053; 81003; 81025; 83690; 85025; 99284

== ENCOUNTER 2023-07-02 09:20 | Outpatient (CLI) | payer MEDICAID ==
[~2023-07-02 09:20] MED LIST changes: +POLY119P2 PO
== END 2023-07-02 23:59 | disposition home or self-care (01) ==
LOC: RAD 09:20
PROVIDERS: ATTEND Family Medicine
DX: N28.89 Other specified disorders of kidney and ureter (principal); R10.84 Generalized abdominal pain; R56.9 Unspecified convulsions; E78.5 Hyperlipidemia, unspecified; Z90.49 Acquired absence of other specified parts of digestive tract
CPT/HCPCS: 76700

== ENCOUNTER 2024-05-20 12:37 | Emergency (ER) | payer MEDICARE, MEDICAID ==
[~2024-05-20] VITALS: Ht 162.6 cm; Wt 59.1 kg
[2024-05-20 12:51] VITALS: BP 132/78; PULSE 74; RESP 16; O2SAT 98
[2024-05-20] MEDS ORDERED: FLUT16SP2 BOTHNARES (13:10)
[2024-05-20] MEDS ORDERED: PSEU120T56 PO (13:10)
[2024-05-20 13:14] VITALS: TEMP 97.6
== END 2024-05-20 13:16 | disposition home or self-care (01) ==
LOC: ER 12:38
DX: H92.01 Otalgia, right ear (principal); E78.00 Pure hypercholesterolemia, unspecified; I10 Essential (primary) hypertension; G89.29 Other chronic pain; K21.9 Gastro-esophageal reflux disease without esophagitis; Z85.3 Personal history of malignant neoplasm of breast; Z85.41 Personal history of malignant neoplasm of cervix uteri; Z90.49 Acquired absence of other specified parts of digestive tract; Z56.0 Unemployment, unspecified; Z59.00 Homelessness unspecified; Z72.89 Other problems related to lifestyle; Z88.2 Allergy status to sulfonamides; Z88.1 Allergy status to other antibiotic agents; Z88.6 Allergy status to analgesic agent; Z88.5 Allergy status to narcotic agent; Z88.8 Allergy status to other drugs, medicaments and biological substances; Z79.899 Other long term (current) drug therapy
CPT/HCPCS: 99282